=== PATIENT | female | born 1990 | race Caucasian/White ===

== ENCOUNTER 2022-10-26 08:17 | Emergency (ER) | payer MEDICAID ==
[~2022-10-26] VITALS: Ht 157.5 cm; Wt 87.5 kg
[2022-10-26 08:24] VITALS: BP 135/86; PULSE 76; RESP 16; TEMP 96.7; O2SAT 98
--- NOTE | 2022-10-26 08:32 | NUR ---
ABSCESS/FISSURE TO COCCYX ONSET 3 DAYS AGO. 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 ALSO ENDORSING A SIMILAR EVENT 4 YEARS AGO, AT THAT TIME THE FISSURE HEALED ON IT'S OWN USING HOME REMEDIES. HERE TODAY BECAUSE THE PAIN IS INTOLERABLE. PMH: DENIES
[2022-10-26 09:04] LABS: BASOPHILS # (AUTO) 0.1 K/uL (0.00-0.22); EOSINOPHILS # (AUTO) 0.2 K/uL (0-0.4); EOSINOPHILS % (AUTO) 2.7 % (0.0-4.0); HEMATOCRIT 38.8 % (36-48); HEMOGLOBIN 12.5 g/dL (12.0-16.0); LYMPHOCYTES # (AUTO) 1.9 K/uL (2.5-16.5); LYMPHOCYTES % (AUTO) 24.8 % (20.5-51.1); MEAN CORPUSCULAR HEMOGLOBIN 22 pg (27-31); MEAN CORPUSCULAR HGB CONC 32 g/dL (33-37); MEAN CORPUSCULAR VOLUME 68.4 fL (80-94); MONOCYTES # (AUTO) 0.5 K/uL (0.8-1.0); MONOCYTES % (AUTO) 6.8 % (1.7-9.3); NEUTROPHILS # (AUTO) 4.9 K/uL (1.8-7.7); NEUTROPHILS % (AUTO) 64.7 % (42.2-75.2); PLATELET COUNT (AUTO) 381 K/uL (140-450); RED BLOOD CELL COUNT(AUTO) 5.68 MIL/uL (4.20-5.40); RED CELL DISTRIBUTION WIDTH 18.2 % (11.6-13.7); WHITE BLOOD COUNT (AUTO) 7.6 K/uL (4.8-10.8)
[2022-10-26 09:11] LABS: ANION GAP 9.7 (8-16); CARBON DIOXIDE 29.2 mmol/L (21-32); CREATININE 0.7 mg/dL (0.6-1.3); POTASSIUM 3.9 mmol/L (3.5-5.1)
[2022-10-26 09:36] VITALS: O2SAT 98
--- NOTE | 2022-10-26 09:36 | NUR ---
32 YO F PRESENTS W/ABCESS TO COCCYX X 3 DAYS. PT STATES SIMILAR ABCESS 10 YEARS AGO AND REPAIRED IN [place] AND 4YRS AGO, HEALED ON ITS OWN. PT DENIES FEVER, CHILLS, BROWN, N, V, D, INJURY. SAFETY MAINTAINED. CALL LIGHT IN REACH. PMH: DENIES
--- NOTE | 2022-10-26 09:54 | NUR ---
PATIENT WENT TO CT
--- NOTE | 2022-10-26 10:07 | NUR ---
PATIENT BACK FROM CT
--- NOTE | 2022-10-26 10:35 | NUR ---
DR SCHMITZ AT BEDSIDE PERFORMING US
[2022-10-26] MEDS ORDERED: ACET-10509 PO (10:42)
[2022-10-26] MEDS ORDERED: CLIN300C2 PO (10:42)
--- NOTE | 2022-10-26 10:58 | NUR ---
Patient discharged with v/s stable. Written and verbal after care instructions given and explained. Patient alert, oriented and verbalized understanding of instructions. Ambulatory with steady gait. All questions addressed prior to discharge. ID band removed. Patient advised to follow up with PMD. Rx of TYLENOL EXTRA STRENGTH, CLEOCIN given. Opportunity to ask questions provided and answered.
--- NOTE | 2022-10-26 11:17 | NUR ---
The patient's care was reviewed and supervised by [facility], RN.
[2022-10-26 11:18] VITALS: O2SAT 98
== END 2022-10-26 11:17 | disposition home or self-care (01) ==
LOC: MED 08:17
DX: L02.212 Cutaneous abscess of back [any part, except buttock and flank] (principal); Z79.899 Other long term (current) drug therapy
CPT/HCPCS: 36415; 74177; 80048; 84703; 85025; 99285; Q9967